=== PATIENT | female | born 1960 | race African-American/Black ===

== ENCOUNTER 2017-10-27 13:21 | Emergency (ER) | payer OTHER, MEDICARE ==
[~2017-10-27] VITALS: Ht 167.6 cm; Wt 73.5 kg
[2017-10-27] MEDS ORDERED: AMANTADINE 100100 MG PO (13:36)
[2017-10-27] MEDS ORDERED: AMPYRA10 MG PO (13:37)
[2017-10-27] MEDS ORDERED: LIORESAL 10 MG10 MG PO (13:37)
[2017-10-27] MEDS ORDERED: NEURONTIN 300300 M1 PO (13:38)
[2017-10-27] MEDS ORDERED: CIPRO500 MG PO (13:38)
[2017-10-27] MEDS ORDERED: ZANAFLEX4 MG PO (13:39)
[2017-10-27] MEDS ORDERED: TECFIDERA240 MG PO (13:39)
[2017-10-27] MEDS ORDERED: NORCO 5-325 TA1 EACH PO (14:33)
[2017-10-27 15:11] VITALS: BP 138/75
== END 2017-10-27 15:13 | disposition home or self-care (01) ==
LOC: ER 13:21
DX: M25.551 Pain in right hip (principal); M25.552 Pain in left hip; M53.3 Sacrococcygeal disorders, not elsewhere classified